=== PATIENT | male | born 1935 | race Caucasian/White ===

== ENCOUNTER → 2024-04-11 11:16 | Outpatient (REF) | payer OTHER, SELFPAY | LOC: HWRCS 11:16 | PROVIDERS: ATTENDING PHYSICIAN Internal Medicine Cardiovascular Disease; FAMILY PHYSICIAN Internal Medicine | DX: I48.0 Paroxysmal atrial fibrillation (principal); Z95.5 Presence of coronary angioplasty implant and graft | CPT/HCPCS: 93306 ==